=== PATIENT | male | born 1955 | race African-American/Black ===

== ENCOUNTER 2018-08-18 11:32 | Inpatient (IN) | payer MEDICAID ==
[~2018-08-18] VITALS: Ht 175.3 cm; Wt 71.9 kg
--- NOTE | 2018-08-18 11:47 | NUR ---
BIB BY [facility] FOR COUGH/CHILLS/RIGHT CHESTY PAIN DESCRIBED SHARP AT 10/10 X 1 HOUR. EMS REPORT INITIAL BP 80/60, HR 70 IMPROVED TO 1058/70 W/ 100ML NS, FSBS 101 EKG OBTAINED IMMEDIATELY. 324MG ASA ADMINTERED BY EMS REPORTS HX OF BOTH HYPOTENSION AND HYPERTENSIONAS WELL LEFT SIDE DEFICITS (LUE/LLE) FROM CERVICAL INJURY 2 YEARS AGO
--- NOTE | 2018-08-18 12:29 | NUR ---
RESTING ON GURNEY ASKING FOR FOOD/ESTIMATE ON PLAN-> UPDATED ON POC (AWAITING TESTING RESULTS)-LAB/RADIOLOGY AT BEDSIDE REMAINDER OF EMS PROVIDED 1LITER NS INFUSING VIA GRAVITY VITALS WNL ON HOSPITALITY JOB TITLES. PROVIDED W/ ADDITIONAL BLANKET/RE-ARRANGED FOR COMFORT
--- NOTE | 2018-08-18 12:46 | NUR ---
REPORT FROM MICHAEL BORDEN, [facility] AT THIS TIME. LABS RESULTS PENDING.
[2018-08-18 12:50] LABS: ALBUMIN 3.1 g/dL (3.4-5.0); ANION GAP 7 mmol/L (5-15); CALCIUM 8.7 mg/dL (8.5-10.1); CHLORIDE 108 mmol/L (98-107); CREATININE 1.01 mg/dL (0.7-1.3)
[2018-08-18 12:53] LABS: TROPONIN I < 0.015 ng/mL (0.000-0.045)
--- NOTE | 2018-08-18 12:57 | NUR ---
REPORT TO CURTIS BORDEN PATIENT RESTING COMFORTABLY ON GURMONIKA W/ SIDERAILS UP PHONE CHARGED FOR PATIENT REPORTS PAIN IMPROVED W/ REST TO 0/10 UPDATED ON POC-AWAITING TESTING RESULTS. VSS ON INSTRUMENTATION TECH
[2018-08-18 13:13] LABS: HEMOGRAM NOTE RECHECKED; MEAN CORPUSCULAR HEMOGLOBIN 16.8 pg (27.5-34.5); MEAN CORPUSCULAR VOLUME 56.8 fL (81-97); MEAN PLATELET VOLUME 7.9 fL (7.4-10.4); PLATELET COUNT 344 x10^3/uL (130-400); RED BLOOD COUNT 4.92 x10^6/uL (4.38-5.82); RED CELL DISTRIBUTION WIDTH 21.4 % (9.4-14.8)
[2018-08-18 13:14] LABS: MD YES; MEAN CORPUSCULAR HGB CONC 29.5 g/dL (33.2-36.2)
--- NOTE | 2018-08-18 13:15 | NUR ---
ADD ON ORDER FOR CONSULT ONCOLOGY.
[2018-08-18 13:23] LABS: ANISOCYTOSIS 2+; BASOS#(MANUAL) 0.18 x10^3/uL (0-0.1); BASOS% (MANUAL) 2 % (0-1); LYMPH#(MANUAL) 1.67 x10^3/uL (1-3.4); LYMPHS% (MANUAL) 19 % (22-44); MICROCYTOSIS 2+; MONOS#(MANUAL) 0.97 x10^3/uL (0.3-2.7); MONOS% (MANUAL) 11 % (2-9); POLYCHROMASIA 1+; SEG#(MANUAL) 5.98 x10^3/uL (1.8-6.8); SEGS% (MANUAL) 68 % (42-75)
[2018-08-18 13:24] LABS: TARGET CELLS 2+
[2018-08-18 13:25] LABS: HYPOCHROMIA 2+
[2018-08-18 13:27] LABS: <PLATELET ESTIMATE> ADEQUATE; <PLT MORPHOLOGY> NORMAL PLT MORPH
--- NOTE | 2018-08-18 14:06 | NUR ---
PT UPDATED ON POC, ADD ON CTA. PT DENIES CP AT THIS TIME. CALL LIGHT WITHIN REACH, WARM BLANKET PROVIDED.
[2018-08-18] MEDS ORDERED: OMNIPAQUE 350 MG/ML, 100ML BOTTLE ONE (14:36)
--- NOTE | 2018-08-18 15:16 | NUR ---
CTA RESULTS BACK, PT FOR RECHECK.
[2018-08-18] MEDS ORDERED: SODIUM CHLORIDE 0.9% 1,000 ML IV SCH (15:59)
[2018-08-18] MEDS ORDERED: ASPIRIN 81 MG TABLET CHEW PO ONE (16:00)
[2018-08-18] MEDS ORDERED: ONDANSETRON 2MG/ML, 2ML IVPush PRN (16:00)
[2018-08-18] MEDS ORDERED: LABETALOL 5MG/ML, 20ML IVPush PRN (16:00)
[2018-08-18] MEDS ORDERED: hydrALAzine 20 MG/ML, 1ML IVPush PRN (16:00)
[2018-08-18] MEDS ORDERED: ACETAMINOPHEN 325 MG TABLET PO PRN (16:00)
[2018-08-18] MEDS ORDERED: NITROGLYCERIN 0.4 MG BOTTLE (25 TABS) SL PRN (16:00)
--- NOTE | 2018-08-18 16:15 | NUR ---
ATTEMPT TO CALL REPORT, RN NOT AVAILABLE AND WILL CALL BACK.
[2018-08-18 16:26] LABS: INTERNATIONAL NORMALIZED RATIO 0.91 (0.93-1.1); PROTHROMBIN TIME 9.6 Seconds (9.6-11.5)
--- NOTE | 2018-08-18 16:35 | NUR ---
REPORT TO KETTY BORDEN, PT READY FOR TRANSPORT TO FLOOR.
[2018-08-18 16:49] LABS: % IRON SATURATION 4 % (20-55); IRON LEVEL 16 mcg/dL (65-175); TOTAL IRON BINDING CAPACITY 452 mcg/dL (250-450); TROPONIN I < 0.015 ng/mL (0.000-0.045)
[2018-08-18 17:06] VITALS: BP 121/84
[2018-08-18] MEDS: HEPARIN 5,000 UNITS/ML, 1ML SQ SCH ×2 (18:23→19:05)
[2018-08-18] MEDS: NICOTINE 14MG/24 HR PATCH.TD24 TD SCH (18:23)
[2018-08-18 20:25] VITALS: BP 128/84
[2018-08-18] MEDS ORDERED: ATORVASTATIN 40 MG TABLET PO SCH (21:00)
[2018-08-18 22:10] LABS: TROPONIN I < 0.015 ng/mL (0.000-0.045)
[2018-08-19 01:06] VITALS: BP 155/87
[2018-08-19 05:46] LABS: MEAN CORPUSCULAR HEMOGLOBIN 17.3 pg (27.5-34.5); MEAN CORPUSCULAR HGB CONC 30.1 g/dL (33.2-36.2); MEAN CORPUSCULAR VOLUME 57.3 fL (81-97); MEAN PLATELET VOLUME 7.9 fL (7.4-10.4); PLATELET COUNT 335 x10^3/uL (130-400); RED BLOOD COUNT 4.23 x10^6/uL (4.38-5.82); RED CELL DISTRIBUTION WIDTH 20.9 % (9.4-14.8)
[2018-08-19 05:53] LABS: CHLORIDE 112 mmol/L (98-107)
[2018-08-19] MEDS ORDERED: ASPIRIN 325 MG TABLET EC PO SCH (06:00)
[2018-08-19 06:05] LABS: ALANINE AMINOTRANSFERASE 22 U/L (12-78); ALBUMIN 2.8 g/dL (3.4-5.0); ALKALINE PHOSPHATASE 106 U/L (45-117); ANION GAP 4 mmol/L (5-15); BILIRUBIN,TOTAL 0.6 mg/dL (0.2-1.0); CALCIUM 8.8 mg/dL (8.5-10.1); CREATININE 0.93 mg/dL (0.7-1.3); TOTAL PROTEIN 6.9 g/dL (6.4-8.2)
[2018-08-19 06:08] LABS: MD YES
[2018-08-19 06:10] LABS: BASOS#(MANUAL) 0.08 x10^3/uL (0-0.1); BASOS% (MANUAL) 1 % (0-1); EOS#(MANUAL) 0.08 x10^3/uL (0.0-0.4); EOS% (MANUAL) 1 % (1-7); LYMPH#(MANUAL) 1.83 x10^3/uL (1-3.4); LYMPHS% (MANUAL) 22 % (22-44); MONOS% (MANUAL) 6 % (2-9); SEG#(MANUAL) 5.81 x10^3/uL (1.8-6.8); SEGS% (MANUAL) 70 % (42-75)
[2018-08-19 06:11] LABS: <PLATELET ESTIMATE> ADEQUATE; <PLT MORPHOLOGY> NORMAL PLT MORPH; ANISOCYTOSIS 2+; HYPOCHROMIA 2+; MICROCYTOSIS 2+; POLYCHROMASIA 1+; TARGET CELLS 2+
[2018-08-19 07:20] VITALS: BP 126/84
[2018-08-19] MEDS ORDERED: LIDOCAINE 4% TOPICAL SOLUTION 50 ML ONE (07:44)
[2018-08-19] MEDS ORDERED: LIDOCAINE 2%, 20ML ONE (07:44)
[2018-08-19] MEDS ORDERED: LIDOCAINE GEL 2%, 5ML ONE (07:44)
[2018-08-19] MEDS ORDERED: MIDAZOLAM 1 MG/ML, 5ML ONE (07:59)
[2018-08-19] MEDS ORDERED: FENTANYL PF 100 MCG/2ML ONE (07:59)
[2018-08-19 09:49] LABS: FOLATE LEVEL 8.8 ng/mL (3.1-17.5)
[2018-08-19] MEDS: IRON SUCROSE COMPLEX 100MG/5ML IV SCH (10:00)
[2018-08-19 10:25] LABS: FREE T4 (FREE THYROXINE) 1.04 ng/dL (0.76-1.46)
[2018-08-19 13:23] VITALS: BP 115/76
[2018-08-19] MEDS ORDERED: GADOBUTROL 7.5 MMOL/7.5 ML PFS ONE (16:55)
[2018-08-19] MEDS: NICOTINE 14MG/24 HR PATCH.TD24 TD SCH (17:47)
[2018-08-19 21:00] VITALS: BP 111/72
[2018-08-20 02:07] VITALS: BP 111/78
[2018-08-20 08:24] VITALS: BP 114/74
[2018-08-20] MEDS: IRON SUCROSE COMPLEX 100MG/5ML IV SCH (09:03)
[2018-08-20] MEDS: ASPIRIN 81 MG TABLET CHEW PO SCH (09:05)
[2018-08-20] MEDS ORDERED: ASPIRIN 81 MG TABLET CHEW ONE (09:05)
[2018-08-20 12:50] VITALS: BP 118/76
[2018-08-20] MEDS: NICOTINE 14MG/24 HR PATCH.TD24 TD SCH (15:44)
[2018-08-20 19:06] VITALS: BP 119/76
[2018-08-20] MEDS: ATORVASTATIN 40 MG TABLET PO SCH (21:34)
[2018-08-21 00:24] VITALS: BP 118/73
[2018-08-21 04:40] LABS: MEAN CORPUSCULAR HEMOGLOBIN 17.6 pg (27.5-34.5); MEAN CORPUSCULAR HGB CONC 30.2 g/dL (33.2-36.2); MEAN CORPUSCULAR VOLUME 58.1 fL (81-97); MEAN PLATELET VOLUME 7.9 fL (7.4-10.4); PLATELET COUNT 358 x10^3/uL (130-400); RED BLOOD COUNT 4.22 x10^6/uL (4.38-5.82); RED CELL DISTRIBUTION WIDTH 21.1 % (9.4-14.8)
[2018-08-21 06:00] LABS: MD YES
[2018-08-21 06:02] LABS: BASOS#(MANUAL) 0.11 x10^3/uL (0-0.1); BASOS% (MANUAL) 1 % (0-1); EOS#(MANUAL) 0.22 x10^3/uL (0.0-0.4); EOS% (MANUAL) 2 % (1-7); LYMPH#(MANUAL) 3.24 x10^3/uL (1-3.4); LYMPHS% (MANUAL) 30 % (22-44); MONOS#(MANUAL) 0.86 x10^3/uL (0.3-2.7); MONOS% (MANUAL) 8 % (2-9); SEG#(MANUAL) 6.37 x10^3/uL (1.8-6.8); SEGS% (MANUAL) 59 % (42-75)
[2018-08-21 06:03] LABS: <PLATELET ESTIMATE> ADEQUATE; <PLT MORPHOLOGY> NORMAL PLT MORPH; ANISOCYTOSIS 2+; HYPOCHROMIA 2+; MICROCYTOSIS 2+; POLYCHROMASIA 1+; TARGET CELLS 2+
[2018-08-21 06:45] VITALS: BP 122/74
[2018-08-21] MEDS: ASPIRIN 81 MG TABLET CHEW PO SCH (09:23)
[2018-08-21] MEDS: IRON SUCROSE COMPLEX 100MG/5ML IV SCH (09:23)
[2018-08-21] MEDS: morphine SULFATE 10 MG/ML, 1ML IVPush PRN ×2 (09:24→20:42)
[2018-08-21] MEDS ORDERED: GADOBUTROL 7.5 MMOL/7.5 ML PFS ONE (11:23)
[2018-08-21 13:20] VITALS: BP 102/67
[2018-08-21] MEDS: NICOTINE 14MG/24 HR PATCH.TD24 TD SCH (16:33)
[2018-08-21] MEDS: OXYcodone/APAP 5/325MG TABLET PO PRN (17:39)
[2018-08-21] MEDS ORDERED: OMNIPAQUE 350 MG/ML, 100ML BOTTLE ONE (18:23)
[2018-08-21 19:58] VITALS: BP 107/72
[2018-08-21] MEDS: ATORVASTATIN 40 MG TABLET PO SCH (20:42)
[2018-08-22 02:00] VITALS: BP 110/72
[2018-08-22 06:07] LABS: MEAN CORPUSCULAR HEMOGLOBIN 17.6 pg (27.5-34.5); MEAN CORPUSCULAR VOLUME 58.8 fL (81-97); MEAN PLATELET VOLUME 7.7 fL (7.4-10.4); PLATELET COUNT 351 x10^3/uL (130-400); RED BLOOD COUNT 4.08 x10^6/uL (4.38-5.82); RED CELL DISTRIBUTION WIDTH 21.5 % (9.4-14.8)
[2018-08-22 06:24] LABS: MD YES
[2018-08-22 06:26] LABS: ANISOCYTOSIS 2+; EOS#(MANUAL) 0.49 x10^3/uL (0.0-0.4); EOS% (MANUAL) 5 % (1-7); LYMPH#(MANUAL) 2.62 x10^3/uL (1-3.4); LYMPHS% (MANUAL) 27 % (22-44); MICROCYTOSIS 2+; MONOS#(MANUAL) 0.58 x10^3/uL (0.3-2.7); MONOS% (MANUAL) 6 % (2-9); SEG#(MANUAL) 6.01 x10^3/uL (1.8-6.8); SEGS% (MANUAL) 62 % (42-75)
[2018-08-22 06:27] LABS: <PLATELET ESTIMATE> ADEQUATE; <PLT MORPHOLOGY> NORMAL PLT MORPH; HYPOCHROMIA 2+; POLYCHROMASIA 1+; TARGET CELLS 2+
[2018-08-22] MEDS: OXYcodone/APAP 5/325MG TABLET PO PRN ×2 (08:24→15:29)
[2018-08-22] MEDS: ASPIRIN 81 MG TABLET CHEW PO SCH (08:24)
[2018-08-22] MEDS: IRON SUCROSE COMPLEX 100MG/5ML IV SCH (08:24)
[2018-08-22 09:59] VITALS: BP 118/76
[2018-08-22] MEDS ORDERED: ACET325T14 PO (10:50)
[2018-08-22] MEDS ORDERED: ASPI-515 PO (10:50)
[2018-08-22] MEDS ORDERED: FERR-51 PO (10:50)
[2018-08-22] MEDS ORDERED: ATOR40TA78 PO (10:50)
[2018-08-22 12:15] VITALS: BP 113/75
[2018-08-22] MEDS: NICOTINE 14MG/24 HR PATCH.TD24 TD SCH (15:54)
== END 2018-08-22 16:15 | disposition home or self-care (01) | DRG 166 ==
LOC: ED 12:47 → EDIP 15:52 → 5SO 16:51 → 3NW 08-20 23:16 → DCLOUNGE 08-22 16:08
PROVIDERS: ADMIT Internal Medicine; ATTEND Internal Medicine
PROC: 0BBC8ZX Excision of Right Upper Lung Lobe, Via Natural or Artificial Opening Endoscopic, Diagnostic (ICD-10-PCS; principal; 2018-08-19 08:00)
DX: R91.8 Other nonspecific abnormal finding of lung field (principal); J18.9 Pneumonia, unspecified organism; E44.1 Mild protein-calorie malnutrition; D50.9 Iron deficiency anemia, unspecified; F17.200 Nicotine dependence, unspecified, uncomplicated; I10 Essential (primary) hypertension; Z79.82 Long term (current) use of aspirin; Z88.0 Allergy status to penicillin; Z68.23 Body mass index [BMI] 23.0-23.9, adult
CPT/HCPCS: 36415; 99285; J3490; 31622; 70553; 71045; 71275; 74177; 80048; 80053; 82040; 82607; 82728; 82746; 83540; 83550; 84439; 84443; 84481; 84484; 85014; 85018; 85025; 85610; 85730; 88104; 88172; 88305; 93005; 93306; 93880; 95819; 99152; 99153; A9585; G0378; J1644; J1756; J2250; J3010; Q9967; J2270; J7030